=== PATIENT | female | born 1990 | race Native Hawaiian/Other Pacific Islander ===

== ENCOUNTER 2020-02-18 15:08 | Inpatient (IN) | payer OTHER ==
--- NOTE | 2020-02-18 15:55 | Event Note ---
ED Screening Note Date of service: 02/18/20 Time: 15:50 ED Screening Note: 29-year-old female presents to the emergency room complaining of chest pain that radiates to her back shortness of breath cough no fever no chills. Reports that she has Covid positive contact in her home. Reports that she was treated for pneumonia last week but worsening symptoms. This initial assessment/diagnostic orders/clinical plan/treatment(s) is/are subject to change based on patients health status, clinical progression and re- assessment by fellow clinical providers in the ED. Further treatment and workup at subsequent clinical providers discretion. Patient/guardian urged not to elope from the ED as their condition may be serious if not clinically assessed and managed. Initial orders include:
--- NOTE | 2020-02-18 16:28 | XRay Report ---
CHEST 2 VIEWS INDICATION: sob,cough and rales. COMPARISON: None. FINDINGS: Support devices: None. Heart: Within normal limits. Lungs/Pleura: No acute air space or interstitial disease. No significant pleural effusion. IMPRESSION: No acute findings. Signer Name: Alexis Douglas MD Signed: 02/18/2020 4:23 PM Workstation Name: [id number]
[2020-02-18 16:41] LABS: Bilirubin,Urine NEG (Negative); Blood,Urine MOD (Negative); Color,Urine Straw (Yellow); Mucus,Urine FEW /HPF; Protein,Urine <15 mg/dL mg/dL (Negative); RBC,Urine < 1.0 /HPF (0.0-6.0); Urobilinogen,Urine < 2.0 mg/dL (<2.0); WBC,Urine < 1.0 /HPF (0.0-6.0)
[2020-02-18 16:41] LABS: Hematocrit 40.9 % (30.3-42.9); Hemoglobin 13.8 gm/dl (10.1-14.3); Mean Corpuscular HGB Conc 34 % (30-34); Mean Corpuscular Volume 90 fl (79-97); Platelet Count 291 K/mm3 (140-440); Red Blood Count 4.57 M/mm3 (3.65-5.03); Red Cell Distribution Width 13.9 % (13.2-15.2)
[2020-02-18 17:04] LABS: Alanine Aminotransferase 21 units/L (7-56); Albumin 4.4 g/dL (3.9-5); Blood Urea Nitrogen 8 mg/dL (7-17); Hemolysis Index 7
[2020-02-18 17:09] LABS: BUN/Creatinine Ratio 16
[2020-02-18 19:32] LABS: Basophils % (Manual) 0 % (0.0-1.8); Eosinophils % (Manual) 0 % (0.0-4.3); Total Cells Counted 100
[2020-02-18 19:44] LABS: Platelet Estimate Consistent w Auto; RBC Morphology Normal
[2020-02-18] MEDS ORDERED: SODIUM CHLORIDE 0.9% 1000 ML 1,000 ML IV ONE (21:09)
[2020-02-18] MEDS ORDERED: dexAMETHasone 20 MG/5 ML VIAL IV ONE (21:23)
[2020-02-18] MEDS ORDERED: MORPHINE 4 MG/1 ML INJ IV ONE (21:23)
--- NOTE | 2020-02-18 21:28 | Emergency Department Report ---
ED Shortness of Breath HPI - General Chief Complaint: Dyspnea/Respdistress Stated Complaint: FEVER Time Seen by Provider: 02/18/20 21:07 Source: patient Mode of arrival: Ambulatory Limitations: Language Barrier - History of Present Illness Initial Comments: Patient is a 29-year-old female with no significant past medical history who is presenting with 3 to 4 days of cough congestion is shortness of breath. Patient went to a clinic 3 days ago and was diagnosed with a left sided pneumonia and was started on antibiotics and steroids. Patient has several family members who is tested positive for COVID-19. Patient has not gotten any better since started antibiotics and likely has COVID-19 herself. There is been no nausea vomiting diarrhea. Cough is nonproductive. She has shortness of breath with exertion. She denies body aches. - Related Data Allergies Allergy/AdvReac Type Severity Reaction Status Date / Time No Known Allergies Allergy Unverified 02/18/20 15:51 ED Review of Systems ROS: Stated complaint: FEVER Other details as noted in HPI Comment: All other systems reviewed and negative ED Physical Exam - General Limitations: Language Barrier General appearance: alert, in no apparent distress - Head Head exam: Present: atraumatic, normocephalic - Eye Eye exam: Present: normal appearance - ENT ENT exam: Present: mucous membranes moist - Neck Neck exam: Present: normal inspection - Respiratory Respiratory exam: Present: rhonchi. Absent: respiratory distress, wheezes, rales - Cardiovascular Cardiovascular Exam: Present: regular rate, normal rhythm, normal heart sounds. Absent: systolic murmur, diastolic murmur, rubs, gallop - GI/Abdominal GI/Abdominal exam: Present: soft, normal bowel sounds. Absent: distended, tenderness, guarding, rebound - Extremities Exam Extremities exam: Present: normal inspection - Back Exam Back exam: Present: normal inspection - Neurological Exam Neurological exam: Present: alert, oriented X3 - Psychiatric Psychiatric exam: Present: normal affect, normal mood - Skin Skin exam: Present: warm, dry, intact, normal color. Absent: rash ED Course Vital Signs 02/18/20 15:46 Temperature 98.8 F Pulse Rate 71 Respiratory 20 Rate Blood Pressure 95/66 [Right] O2 Sat by Pulse 98 Oximetry ED Medical Decision Making - Lab Data Result diagrams: 02/18/20 16:23 11/13/20 16:23 Lab Results 02/18/20 02/18/20 02/18/20 Range/Units 16:23 16:23 16:23 WBC 32.5 H (4.5-11.0) K/mm3 RBC 4.57 (3.65-5.03) M/mm3 Hgb 13.8 (10.1-14.3) gm/dl Hct 40.9 (30.3-42.9) % MCV 90 (79-97) fl MCH 30 (28-32) pg MCHC 34 (30-34) % RDW 13.9 (13.2-15.2) % Plt Count 291 (140-440) K/mm3 Add Manual Diff Complete Total Counted 100 Seg Neuts % (Manual) 89.0 H (40.0-70.0) % Band Neutrophils % 0 % Lymphocytes % (Manual) 7.0 L (13.4-35.0) % Reactive Lymphs % (Man) 0 % Monocytes % (Manual) 4.0 (0.0-7.3) % Eosinophils % (Manual) 0 (0.0-4.3) % Basophils % (Manual) 0 (0.0-1.8) % Metamyelocytes % 0 % Myelocytes % 0 % Promyelocytes % 0 % Blast Cells % 0 % Nucleated RBC % Not Reportable Seg Neutrophils # Man 28.9 H (1.8-7.7) K/mm3 Band Neutrophils # 0.0 K/mm3 Lymphocytes # (Manual) 2.3 (1.2-5.4) K/mm3 Abs React Lymphs (Man) 0.0 K/mm3 Monocytes # (Manual) 1.3 H (0.0-0.8) K/mm3 Eosinophils # (Manual) 0.0 (0.0-0.4) K/mm3 Basophils # (Manual) 0.0 (0.0-0.1) K/mm3 Metamyelocytes # 0.0 K/mm3 Myelocytes # 0.0 K/mm3 Promyelocytes # 0.0 K/mm3 Blast Cells # 0.0 K/mm3 Hypersegmented Neuts Not Reportable Hyposegmented Neuts Not Reportable Hypogranular Neuts Not Reportable Smudge Cells Not Reportable Toxic Granulation Not Reportable Toxic Vacuolation Not Reportable Dohle Bodies Not Reportable Pelger-Huet Anomaly Not Reportable Angie Rods Not Reportable Platelet Estimate Consistent w auto Clumped Platelets Not Reportable Plt Clumps, EDTA Not Reportable Large Platelets Not Reportable Giant Platelets Not Reportable Platelet Satelliting Not Reportable Plt Morphology Comment Not Reportable RBC Morphology Normal Dimorphic RBCs Not Reportable Polychromasia Not Reportable Hypochromasia Not Reportable Poikilocytosis Not Reportable Anisocytosis Not Reportable Microcytosis Not Reportable Macrocytosis Not Reportable Spherocytes Not Reportable Pappenheimer Bodies Not Reportable Sickle Cells Not Reportable Target Cells Not Reportable Tear Drop Cells Not Reportable Ovalocytes Not Reportable Helmet Cells Not Reportable [place] Bodies Not Reportable [place] Rings Not Reportable [place] Cells Not Reportable Bite Cells Not Reportable Crenated Cell Not Reportable Elliptocytes Not Reportable Acanthocytes (Spur) Not Reportable Rouleaux Not Reportable Hemoglobin C Crystals Not Reportable Schistocytes Not Reportable Malaria parasites Not Reportable [place] Bodies Not Reportable Hem Pathologist Commnt Sent to pathology Sodium 139 (137-145) mmol/L Potassium 3.8 (3.6-5.0) mmol/L Chloride 106.0 (98-107) mmol/L Carbon Dioxide 24 (22-30) mmol/L Anion Gap 13 mmol/L BUN 8 (7-17) mg/dL Creatinine 0.5 L (0.6-1.2) mg/dL Estimated GFR > 60 ml/min BUN/Creatinine Ratio 16 % Glucose 111 H (65-100) mg/dL Calcium 9.0 (8.4-10.2) mg/dL Total Bilirubin 0.20 (0.1-1.2) mg/dL AST 15 (5-40) units/L ALT 21 (7-56) units/L Alkaline Phosphatase 96 (35-129) units/L Troponin T < 0.010 (0.00-0.029) ng/mL Total Protein 7.7 (6.3-8.2) g/dL Albumin 4.4 (3.9-5) g/dL Albumin/Globulin Ratio 1.3 % Urine Color (Yellow) Urine Turbidity (Clear) Urine pH (5.0-7.0) Ur Specific [place] (1.003-1.030) Urine Protein (Negative) mg/dL Urine Glucose (UA) (Negative) mg/dL Urine Ketones (Negative) mg/dL Urine Blood (Negative) Urine Nitrite (Negative) Urine Bilirubin (Negative) Urine Urobilinogen (<2.0) mg/dL Ur Leukocyte Esterase (Negative) Urine WBC (Auto) (0.0-6.0) /HPF Urine RBC (Auto) (0.0-6.0) /HPF U Epithel Cells (Auto) (0-13.0) /HPF Urine Mucus /HPF 02/18/20 Range/Units Unknown WBC (4.5-11.0) K/mm3 RBC (3.65-5.03) M/mm3 Hgb (10.1-14.3) gm/dl Hct (30.3-42.9) % MCV (79-97) fl MCH (28-32) pg MCHC (30-34) % RDW (13.2-15.2) % Plt Count (140-440) K/mm3 Add Manual Diff Total Counted Seg Neuts % (Manual) (40.0-70.0) % Band Neutrophils % % Lymphocytes % (Manual) (13.4-35.0) % Reactive Lymphs % (Man) % Monocytes % (Manual) (0.0-7.3) % Eosinophils % (Manual) (0.0-4.3) % Basophils % (Manual) (0.0-1.8) % Metamyelocytes % % Myelocytes % % Promyelocytes % % Blast Cells % % Nucleated RBC % Seg Neutrophils # Man (1.8-7.7) K/mm3 Band Neutrophils # K/mm3 Lymphocytes # (Manual) (1.2-5.4) K/mm3 Abs React Lymphs (Man) K/mm3 Monocytes # (Manual) (0.0-0.8) K/mm3 Eosinophils # (Manual) (0.0-0.4) K/mm3 Basophils # (Manual) (0.0-0.1) K/mm3 Metamyelocytes # K/mm3 Myelocytes # K/mm3 Promyelocytes # K/mm3 Blast Cells # K/mm3 Hypersegmented Neuts Hyposegmented Neuts Hypogranular Neuts Smudge Cells Toxic Granulation Toxic Vacuolation Dohle Bodies Pelger-Huet Anomaly Angie Rods Platelet Estimate Clumped Platelets Plt Clumps, EDTA Large Platelets Giant Platelets Platelet Satelliting Plt Morphology Comment RBC Morphology Dimorphic RBCs Polychromasia Hypochromasia Poikilocytosis Anisocytosis Microcytosis Macrocytosis Spherocytes Pappenheimer Bodies Sickle Cells Target Cells Tear Drop Cells Ovalocytes Helmet Cells [place] Bodies [place] Rings [place] Cells Bite Cells Crenated Cell Elliptocytes Acanthocytes (Spur) Rouleaux Hemoglobin C Crystals Schistocytes Malaria parasites [place] Bodies Hem Pathologist Commnt Sodium (137-145) mmol/L Potassium (3.6-5.0) mmol/L Chloride (98-107) mmol/L Carbon Dioxide (22-30) mmol/L Anion Gap mmol/L BUN (7-17) mg/dL Creatinine (0.6-1.2) mg/dL Estimated GFR ml/min BUN/Creatinine Ratio % Glucose (65-100) mg/dL Calcium (8.4-10.2) mg/dL Total Bilirubin (0.1-1.2) mg/dL AST (5-40) units/L ALT (7-56) units/L Alkaline Phosphatase (35-129) units/L Troponin T (0.00-0.029) ng/mL Total Protein (6.3-8.2) g/dL Albumin (3.9-5) g/dL Albumin/Globulin Ratio % Urine Color Straw (Yellow) Urine Turbidity Clear (Clear) Urine pH 6.0 (5.0-7.0) Ur Specific [place] 1.006 (1.003-1.030) Urine Protein <15 mg/dl (Negative) mg/dL Urine Glucose (UA) Neg (Negative) mg/dL Urine Ketones Neg (Negative) mg/dL Urine Blood Mod (Negative) Urine Nitrite Neg (Negative) Urine Bilirubin Neg (Negative) Urine Urobilinogen < 2.0 (<2.0) mg/dL Ur Leukocyte Esterase Neg (Negative) Urine WBC (Auto) < 1.0 (0.0-6.0) /HPF Urine RBC (Auto) < 1.0 (0.0-6.0) /HPF U Epithel Cells (Auto) 2.0 (0-13.0) /HPF Urine Mucus Few /HPF - Radiology Data [facility] [address] [place] [address] XRay Report Signed Patient: CAM FRYE MR#: [id number] : 1990 Acct:[id number] Age/Sex: 29 / F ADM Date: 02/18/20 Loc: ED Attending Dr: Ordering Physician: PEDRO LUIS CASTILLO Date of Service: 02/18/20 Procedure(s): XR chest routine 2V Accession Number(s): [id number] cc: PEDRO LUIS CASTILLO Fluoro Time In Minutes: CHEST 2 VIEWS INDICATION: sob,cough and rales. COMPARISON: None. FINDINGS: Support devices: None. Heart: Within normal limits. Lungs/Pleura: No acute air space or interstitial disease. No significant pleural effusion. IMPRESSION: No acute findings. Signer Name: Alexis Douglas MD Signed: 02/18/2020 4:23 PM Workstation Name: [id number] - Medical Decision Making Patient is a 29-year-old female who is presenting with cough congestion shortness of breath. Her O2 sat is within normal limits at rest however when she ambulates it dropped to 85%. Patient was placed in the room started on o xygen therapy. White count is 32,000 and patient does meet sepsis criteria at this time. Blood cultures to be drawn as well as lactic acid. Patient be started on Rocephin and azithromycin. Patient given a 10 mg of Decadron. COVID-19 testing is been initiated as well patient will be admitted for observation. Critical Care Time: Yes (30) Critical care attestation.: If time is entered above; I have spent that time in minutes in the direct care of this critically ill patient, excluding procedure time. ED Disposition Clinical Impression: Acute respiratory distress, Hypoxia, Acute bronchitis, Suspected COVID-19 virus infection Disposition: OP ADMIT IP TO THIS HOSP Is pt being admited?: Yes Does the pt Need Aspirin: No Condition: Serious Instructions: Acute Bronchitis (ED) Time of Disposition: 21:30
[2020-02-18] MEDS ORDERED: MORPHINE 2 MG/1 ML INJ IV PRN (21:58)
[2020-02-18] MEDS ORDERED: MAGNESIUM HYDROXIDE (MOM) ORAL LIQD UDC PO PRN (21:58)
[2020-02-18] MEDS ORDERED: ONDANSETRON 4 MG/2 ML INJ IV PRN (21:58)
[2020-02-18] MEDS ORDERED: SODIUM CHLORIDE 0.9% 1000 ML 1,000 ML IV SCH (22:00)
--- NOTE | 2020-02-18 22:07 | History and Physical Report ---
History of Present Illness Date of examination: 02/18/20 Date of admission: 02/18/20 21:30 Chief complaint: Cough Shortness of breath History of present illness: 29-year-old female with no significant past medical history presenting to the emergency room today complaining of cough, congestion and shortness of breath. She was seen at the clinic about 3 days ago and diagnosed with left- sided pneumonia and started on antibiotics and steroids. She also indicates that several family members have tested positive for COVID-19. As symptoms have been getting worse and she has not had any improvement since she started the antibiotics. Patient denies any chest pain, no nausea or vomiting, no diarrhea, no headache or dizziness, no hematuria or dysuria. Cough has been nonproductive. Evaluation in the emergency room today reveals a significant leukocytosis on the CBC, patient was hypoxic on minimal exertion. Chest x-ray is unremarkable. Patient has been started on empiric IV antibiotics and IV steroid. She is also placed on isolation precautions to rule out COVID-19. Past History Past Medical History: No medical history Past Surgical History: No surgical history Social history: no significant social history Family history: no significant family history Medications and Allergies Allergies Allergy/AdvReac Type Severity Reaction Status Date / Time No Known Allergies Allergy Unverified 02/18/20 15:51 Active Meds: Active Medications Acetaminophen (Tylenol) 650 mg PO Q4H PRN PRN Reason: Pain MILD(1-3)/Fever >100.5/MEJIA Enoxaparin Sodium (Enoxaparin) 40 mg SUB-Q QDAY@2200 ZENOBIA; Protocol Ceftriaxone Sodium (Rocephin/Ns 2 Gm/100 Ml) 2 gm in 100 mls @ 200 mls/hr IV Q24HR ZENOBIA; Protocol Azithromycin 500 mg/ Sodium (Chloride) 250 mls @ 250 mls/hr IV Q24HR ZENOBIA; Protocol Sodium Chloride (Nacl 0.9% 1000 Ml) 1,000 mls @ 999 mls/hr IV BOLUS ONE Stop: 02/18/20 22:09 Sodium Chloride (Nacl 0.9% 1000 Ml) 1,000 mls @ 75 mls/hr IV DIRECT ZENOBIA Magnesium Hydroxide (Milk Of Magnesia) 30 ml PO Q4H PRN PRN Reason: Constipation Morphine Sulfate (Morphine) 2 mg IV Q4H PRN PRN Reason: Pain, Moderate (4-6) Ondansetron HCl (Zofran) 4 mg IV Q8H PRN PRN Reason: Nausea And Vomiting Sodium Chloride (Sodium Chloride Flush Syringe 10 Ml) 10 ml IV BID ZENOBIA Sodium Chloride (Sodium Chloride Flush Syringe 10 Ml) 10 ml IV PRN PRN PRN Reason: LINE FLUSH Review of Systems Constitutional: fever, no chills Ears, nose, mouth and throat: nasal congestion, no sore throat Cardiovascular: no chest pain, no palpitations Respiratory: cough, shortness of breath Gastrointestinal: no abdominal pain, no nausea, no vomiting, no diarrhea Genitourinary Female: no pelvic pain, no flank pain, no hematuria Musculoskeletal: no neck pain, no low back pain Integumentary: no rash, no pruritis Neurological: no headaches, no confusion Psychiatric: no anxiety, no depression Exam - Constitutional Vitals: Temp Pulse Resp BP Pulse Ox 98.8 F 71 20 102/66 98 02/18/20 21:21 02/18/20 15:46 02/18/20 15:46 02/18/20 21:21 02/18/20 15:46 General appearance: Present: no acute distress, well-nourished - EENT Eyes: Present: PERRL, EOM intact. Absent: scleral icterus ENT: hearing intact, clear oral mucosa, dentition normal - Neck Neck: Present: supple, normal ROM - Respiratory Respiratory effort: normal Respiratory: bilateral: CTA - Cardiovascular Rhythm: regular Heart Sounds: Present: S1 & S2. Absent: gallop, systolic murmur, diastolic murmur, rub - Extremities Extremities: no ischemia, pulses intact, pulses symmetrical, No edema, Full ROM Peripheral Pulses: within normal limits - Abdominal General gastrointestinal: Present: soft, non-tender, non-distended, normal bowel sounds. Absent: mass - Integumentary Integumentary: Present: clear, warm, dry - Musculoskeletal Musculoskeletal: strength equal bilaterally - Psychiatric Psychiatric: appropriate mood/affect, intact judgment & insight, memory intact, cooperative - Neurologic Neurologic: CNII-XII intact, no focal deficits, moves all extremities - Additional findings Additional findings: Skin: ?Psoriatic rash on hands. HEART Score - HEART Score Troponin: Troponin T < 0.010 ng/mL (0.00-0.029) 02/18/20 16:23 Results - Labs CBC & Chem 7: 02/18/20 16:23 02/18/20 21:24 Labs: Abnormal lab results 02/18/20 02/18/20 02/18/20 Range/Units 16:23 16:23 21:24 WBC 32.5 H (4.5-11.0) K/mm3 Seg Neuts % (Manual) 89.0 H (40.0-70.0) % Lymphocytes % (Manual) 7.0 L (13.4-35.0) % Seg Neutrophils # Man 28.9 H (1.8-7.7) K/mm3 Monocytes # (Manual) 1.3 H (0.0-0.8) K/mm3 Creatinine 0.5 L (0.6-1.2) mg/dL Glucose 111 H 123 H (65-100) mg/dL Assessment and Plan - Patient Problems (1) Acute respiratory distress Current Visit: Yes Status: Acute Plan to address problem: Possibly secondary to underlying pneumonia from COVID-19. We will keep O2 saturation greater or equal to 94%. (2) Hypoxia Current Visit: Yes Status: Acute Plan to address problem: Secondary to pneumonia from COVID-19. Patient will be placed on oxygen to keep O2 saturation greater or equal to 94%. Meanwhile patient has been started on IV steroid. (3) Suspected COVID-19 virus infection Current Visit: Yes Status: Acute Plan to address problem: Will await COVID-19 testing. Patient placed on isolation precautions. We appreciate infectious disease evaluation. (4) DVT prophylaxis Current Visit: Yes Status: Acute Plan to address problem: Patient placed on subcutaneous Lovenox. (5) Full code status Current Visit: Yes Status: Acute
[2020-02-18] MEDS ORDERED: cefTRIAXone/NS 2 GM/100 ML 2 GM/100 ML BAG IV ONE (22:11)
[2020-02-18] MEDS ORDERED: MORPHINE 4 MG/1 ML INJ ONE (22:12)
[2020-02-18] MEDS: cefTRIAXone/NS 2 GM/100 ML 2 GM/100 ML BAG IV SCH (22:30)
[2020-02-18] MEDS ORDERED: ENOXAPARIN 40 MG/0.4 ML INJ SUB-Q ONE (23:34)
[2020-02-18] MEDS: AZITHROMYCIN 500 MG in SODIUM CHLORIDE 0.9% 250ML 250 ML IV SCH (23:49)
[2020-02-18] MEDS: ENOXAPARIN 40 MG/0.4 ML INJ SUB-Q SCH (23:50)
[2020-02-19 03:03] LABS: Hematocrit 38.3 % (30.3-42.9); Hemoglobin 12.5 gm/dl (10.1-14.3); Mean Corpuscular HGB Conc 33 % (30-34); Mean Corpuscular Volume 90 fl (79-97); Platelet Count 258 K/mm3 (140-440); Red Blood Count 4.26 M/mm3 (3.65-5.03); Red Cell Distribution Width 13.5 % (13.2-15.2)
[2020-02-19 03:11] LABS: Blood Urea Nitrogen 15 mg/dL (7-17); Calcium 8.4 mg/dL (8.4-10.2); Hemolysis Index 8; INR 0.96 (0.87-1.13)
[2020-02-19 03:16] LABS: BUN/Creatinine Ratio 30
[2020-02-19 05:34] LABS: Basophils % (Manual) 0 % (0.0-1.8); Eosinophils % (Manual) 0 % (0.0-4.3); Platelet Estimate Consistent w Auto; Total Cells Counted 100
--- NOTE | 2020-02-19 10:54 | Progress Note ---
Assessment and Plan Assessment and plan: Acute respiratory distress Possibly secondary to underlying pneumonia from COVID-19. We will keep O2 saturation greater or equal to 94%. Acute Hypoxic respiratory failure Secondary to pneumonia from COVID-19. Patient will be placed on oxygen to keep O2 saturation greater or equal to 94%. Meanwhile patient has been started on IV steroid. Suspected COVID-19 virus infection Will await COVID-19 testing. Patient placed on isolation precautions. We appreciate infectious disease evaluation. DVT prophylaxis Patient placed on subcutaneous Lovenox. Full code status History Interval history: no new issues Hospitalist Physical - Constitutional Vitals: Temp Pulse Resp BP Pulse Ox 98.3 F 75 15 110/79 97 02/19/20 00:37 02/19/20 00:37 02/19/20 00:37 02/19/20 00:37 02/19/20 00:37 General appearance: Present: no acute distress, well-nourished - EENT Eyes: Present: PERRL, EOM intact ENT: hearing intact, clear oral mucosa, dentition normal - Neck Neck: Present: supple, normal ROM - Respiratory Respiratory effort: normal Respiratory: bilateral: CTA - Cardiovascular Rhythm: regular Heart Sounds: Present: S1 & S2. Absent: gallop, rub - Extremities Extremities: no ischemia, No edema, Full ROM - Abdominal General gastrointestinal: soft, non-tender, non-distended, normal bowel sounds - Integumentary Integumentary: Present: clear, warm, dry - Neurologic Neurologic: CNII-XII intact, moves all extremities HEART Score - HEART Score Troponin: Troponin T < 0.010 ng/mL (0.00-0.029) 02/18/20 16:23 Results - Labs CBC & Chem 7: 02/19/20 02:33 02/19/20 02:33 Labs: Laboratory Last Values WBC 21.3 K/mm3 (4.5-11.0) H 02/19/20 02:33 RBC 4.26 M/mm3 (3.65-5.03) 02/19/20 02:33 Hgb 12.5 gm/dl (10.1-14.3) 02/19/20 02:33 Hct 38.3 % (30.3-42.9) 02/19/20 02:33 MCV 90 fl (79-97) 02/19/20 02:33 MCH 30 pg (28-32) 02/19/20 02:33 MCHC 33 % (30-34) 02/19/20 02:33 RDW 13.5 % (13.2-15.2) 02/19/20 02:33 Plt Count 258 K/mm3 (140-440) 02/19/20 02:33 Add Manual Diff Complete 02/19/20 02:33 Total Counted 100 02/19/20 02:33 Seg Neuts % (Manual) 89.0 % (40.0-70.0) H 02/19/20 02:33 Band Neutrophils % 0 % 02/19/20 02:33 Lymphocytes % (Manual) 7.0 % (13.4-35.0) L 02/19/20 02:33 Reactive Lymphs % (Man) 0 % 02/19/20 02:33 Monocytes % (Manual) 3.0 % (0.0-7.3) 02/19/20 02:33 Eosinophils % (Manual) 0 % (0.0-4.3) 02/19/20 02:33 Basophils % (Manual) 0 % (0.0-1.8) 02/19/20 02:33 Metamyelocytes % 1.0 % 02/19/20 02:33 Myelocytes % 0 % 02/19/20 02:33 Promyelocytes % 0 % 02/19/20 02:33 Blast Cells % 0 % 02/19/20 02:33 Nucleated RBC % Not Reportable 02/19/20 02:33 Seg Neutrophils # Man 19.0 K/mm3 (1.8-7.7) H 02/19/20 02:33 Band Neutrophils # 0.0 K/mm3 02/19/20 02:33 Lymphocytes # (Manual) 1.5 K/mm3 (1.2-5.4) 02/19/20 02:33 Abs React Lymphs (Man) 0.0 K/mm3 02/19/20 02:33 Monocytes # (Manual) 0.6 K/mm3 (0.0-0.8) 02/19/20 02:33 Eosinophils # (Manual) 0.0 K/mm3 (0.0-0.4) 02/19/20 02:33 Basophils # (Manual) 0.0 K/mm3 (0.0-0.1) 02/19/20 02:33 Metamyelocytes # 0.2 K/mm3 02/19/20 02:33 Myelocytes # 0.0 K/mm3 02/19/20 02:33 Promyelocytes # 0.0 K/mm3 02/19/20 02:33 Blast Cells # 0.0 K/mm3 02/19/20 02:33 WBC Morphology Not Reportable 02/19/20 02:33 Hypersegmented Neuts Not Reportable 02/19/20 02:33 Hyposegmented Neuts Not Reportable 02/19/20 02:33 Hypogranular Neuts Not Reportable 02/19/20 02:33 Smudge Cells Not Reportable 02/19/20 02:33 Toxic Granulation Not Reportable 02/19/20 02:33 Toxic Vacuolation Not Reportable 02/19/20 02:33 Dohle Bodies Not Reportable 02/19/20 02:33 Pelger-Huet Anomaly Not Reportable 02/19/20 02:33 Angie Rods Not Reportable 02/19/20 02:33 Platelet Estimate Consistent w auto 02/19/20 02:33 Clumped Platelets Not Reportable 02/19/20 02:33 Plt Clumps, EDTA Not Reportable 02/19/20 02:33 Large Platelets Not Reportable 02/19/20 02:33 Giant Platelets Not Reportable 02/19/20 02:33 Platelet Satelliting Not Reportable 02/19/20 02:33 Plt Morphology Comment Not Reportable 02/19/20 02:33 RBC Morphology Not Reportable 02/19/20 02:33 Dimorphic RBCs Not Reportable 02/19/20 02:33 Polychromasia Not Reportable 02/19/20 02:33 Hypochromasia Not Reportable 02/19/20 02:33 Poikilocytosis Not Reportable 02/19/20 02:33 Anisocytosis Not Reportable 02/19/20 02:33 Microcytosis Not Reportable 02/19/20 02:33 Macrocytosis Not Reportable 02/19/20 02:33 Spherocytes Not Reportable 02/19/20 02:33 Pappenheimer Bodies Not Reportable 02/19/20 02:33 Sickle Cells Not Reportable 02/19/20 02:33 Target Cells Not Reportable 02/19/20 02:33 Tear Drop Cells Not Reportable 02/19/20 02:33 Ovalocytes Not Reportable 02/19/20 02:33 Helmet Cells Not Reportable 02/19/20 02:33 [place] Bodies Not Reportable 02/19/20 02:33 [place] Rings Not Reportable 02/19/20 02:33 [place] Cells Not Reportable 02/19/20 02:33 Bite Cells Not Reportable 02/19/20 02:33 Crenated Cell Not Reportable 02/19/20 02:33 Elliptocytes Not Reportable 02/19/20 02:33 Acanthocytes (Spur) Not Reportable 02/19/20 02:33 Rouleaux Not Reportable 02/19/20 02:33 Hemoglobin C Crystals Not Reportable 02/19/20 02:33 Schistocytes Not Reportable 02/19/20 02:33 Malaria parasites Not Reportable 02/19/20 02:33 [place] Bodies Not Reportable 02/19/20 02:33 Hem Pathologist Commnt No 02/19/20 02:33 PT 12.9 Sec. (12.2-14.9) 02/19/20 02:33 INR 0.96 (0.87-1.13) 02/19/20 02:33 D-Dimer 257.67 ng/mlDDU (0-234) H 02/18/20 21:24 Sodium 141 mmol/L (137-145) 02/19/20 02:33 Potassium 4.3 mmol/L (3.6-5.0) 02/19/20 02:33 Chloride 110.6 mmol/L (98-107) H 02/19/20 02:33 Carbon Dioxide 18 mmol/L (22-30) L 02/19/20 02:33 Anion Gap 17 mmol/L 02/19/20 02:33 BUN 15 mg/dL (7-17) 02/19/20 02:33 Creatinine 0.5 mg/dL (0.6-1.2) L 02/19/20 02:33 Estimated GFR > 60 ml/min 02/19/20 02:33 BUN/Creatinine Ratio 30 % 02/19/20 02:33 Glucose 130 mg/dL (65-100) H 02/19/20 02:33 Lactic Acid 1.80 mmol/L (0.7-2.0) 02/19/20 02:03 Calcium 8.4 mg/dL (8.4-10.2) 02/19/20 02:33 Ferritin 93.3 ng/mL (10.0-200.0) 02/18/20 21:24 Total Bilirubin 0.20 mg/dL (0.1-1.2) 02/18/20 16:23 AST 15 units/L (5-40) 02/18/20 16:23 ALT 21 units/L (7-56) 02/18/20 16:23 Alkaline Phosphatase 96 units/L (35-129) 02/18/20 16:23 Lactate Dehydrogenase 164 units/L (91-180) 02/18/20 21:24 Troponin T < 0.010 ng/mL (0.00-0.029) 02/18/20 16:23 C-Reactive Protein 0.00 mg/dL (0.00-1.30) 02/18/20 21:24 Total Protein 7.7 g/dL (6.3-8.2) 02/18/20 16:23 Albumin 4.4 g/dL (3.9-5) 02/18/20 16:23 Albumin/Globulin Ratio 1.3 % 02/18/20 16:23 Procalcitonin < 0.05 ng/mL (<0.15) 02/18/20 21:24 Urine Color Straw (Yellow) 02/18/20 Unknown Urine Turbidity Clear (Clear) 02/18/20 Unknown Urine pH 6.0 (5.0-7.0) 02/18/20 Unknown Ur Specific [place] 1.006 (1.003-1.030) 02/18/20 Unknown Urine Protein <15 mg/dl mg/dL (Negative) 02/18/20 Unknown Urine Glucose (UA) Neg mg/dL (Negative) 02/18/20 Unknown Urine Ketones Neg mg/dL (Negative) 02/18/20 Unknown Urine Blood Mod (Negative) 02/18/20 Unknown Urine Nitrite Neg (Negative) 02/18/20 Unknown Urine Bilirubin Neg (Negative) 02/18/20 Unknown Urine Urobilinogen < 2.0 mg/dL (<2.0) 02/18/20 Unknown Ur Leukocyte Esterase Neg (Negative) 02/18/20 Unknown Urine WBC (Auto) < 1.0 /HPF (0.0-6.0) 02/18/20 Unknown Urine RBC (Auto) < 1.0 /HPF (0.0-6.0) 02/18/20 Unknown U Epithel Cells (Auto) 2.0 /HPF (0-13.0) 02/18/20 Unknown Urine Mucus Few /HPF 02/18/20 Unknown Microbiology: Microbiology 02/18/20 21:28 Peripheral/Venous Blood Culture - Preliminary Culture in Progress 02/18/20 21:24 Peripheral/Venous Blood Culture - Preliminary Culture in Progress Lane/IV: IV Catheter Type [Right Distal INT / Saline Lock Port Hand] Active Medications - Current Medications Current Medications: Generic Name Dose Route Start Last Admin Trade Name Freq PRN Reason Stop Dose Admin Acetaminophen 650 mg 02/18/20 21:58 Tylenol PO Q4H PRN Pain MILD(1-3)/Fever >100.5/MEJIA Dexamethasone 6 mg 02/19/20 10:00 Decadron IV Q24HR ZENOBIA Enoxaparin Sodium 40 mg 02/19/20 22:00 02/18/20 23:50 Enoxaparin SUB-Q 40 mg QDAY@2200 [facility] Administration Protocol Ceftriaxone Sodium 2 gm in 100 mls @ 200 mls/hr 02/18/20 21:07 02/18/20 22:30 Rocephin/Ns 2 Gm/100 Ml IV 200 mls/hr Q24HR ZENOBIA Administration Protocol Azithromycin 500 mg/ Sodium 250 mls @ 250 mls/hr 02/18/20 21:07 02/18/20 23:49 Chloride IV 250 mls/hr Q24HR [facility] Administration Protocol Sodium Chloride 1,000 mls @ 75 mls/hr 02/18/20 22:00 Nacl 0.9% 1000 Ml IV DIRECT ZENOBIA Magnesium Hydroxide 30 ml 02/18/20 21:58 Milk Of Magnesia PO Q4H PRN Constipation Morphine Sulfate 2 mg 02/18/20 21:58 Morphine IV Q4H PRN Pain, Moderate (4-6) Ondansetron HCl 4 mg 02/18/20 21:58 Zofran IV Q8H PRN Nausea And Vomiting Sodium Chloride 10 ml 02/18/20 22:00 02/18/20 23:49 Sodium Chloride Flush Syringe 10 Ml IV 10 ml BID ZENOBIA Administration Sodium Chloride 10 ml 02/18/20 21:58 Sodium Chloride Flush Syringe 10 Ml IV PRN PRN LINE FLUSH
[2020-02-19] MEDS ORDERED: dexAMETHasone 4 MG/ML VIAL ONE (11:09)
[2020-02-19] MEDS ORDERED: cefTRIAXone/NS 2 GM/100 ML 2 GM/100 ML BAG IV ONE (11:23)
[2020-02-19] MEDS: dexAMETHasone 4 MG/ML VIAL IV SCH (11:26)
[2020-02-19] MEDS: cefTRIAXone/NS 2 GM/100 ML 2 GM/100 ML BAG IV SCH (11:27)
[2020-02-19 12:03] LABS: C-Reactive Protein < 0.03 mg/dL (0.00-1.30)
[2020-02-19] MEDS: AZITHROMYCIN 500 MG in SODIUM CHLORIDE 0.9% 250ML 250 ML IV SCH (12:19)
--- NOTE | 2020-02-19 15:10 | Consultation ---
History of Present Illness - Reason for Consult Consult date: 02/19/20 Rule out Covid Requesting physician: ANGY HANEY - History of Present Illness 29 years old female with no past medical history admitted on 02/18/2020 due to 3 days history of cough, chest congestion and shortness of breath. Patient was diagnosed with a left-sided pneumonia as an outpatient and started on antibiotics and steroids. Several family members tested positive for COVID-19. Denies any nausea, vomiting, diarrhea. Chest x-ray was unremarkable. On arrival, temperature 98.8, HR 71, RR 20, O2 98, BP 95/60. Initial WBC 32.5. Hemoglobin 13.8. Platelets 291. D-dimer 257. Ferritin 93. Creatinine 0.5. Procalcitonin normal. Urinalysis negative. Review of Systems: reviewed ED and H&P notes. Limited due to PPE conservation strategy Past History Past Medical History: No medical history Past Surgical History: No surgical history Social history: no significant social history Family history: no significant family history Medications and Allergies Allergies Allergy/AdvReac Type Severity Reaction Status Date / Time No Known Allergies Allergy Unverified 02/18/20 15:51 Active Meds: Active Medications Acetaminophen (Tylenol) 650 mg PO Q4H PRN PRN Reason: Pain MILD(1-3)/Fever >100.5/MEJIA Dexamethasone (Decadron) 6 mg IV Q24HR ZENOBIA Last Admin: 02/19/20 11:26 Dose: 6 mg Documented by: Enoxaparin Sodium (Enoxaparin) 40 mg SUB-Q QDAY@2200 ZENOBIA; Protocol Last Admin: 02/18/20 23:50 Dose: 40 mg Documented by: Ceftriaxone Sodium (Rocephin/Ns 2 Gm/100 Ml) 2 gm in 100 mls @ 200 mls/hr IV Q24HR ZENOBIA; Protocol Last Admin: 02/19/20 11:27 Dose: 200 mls/hr Documented by: Azithromycin 500 mg/ Sodium (Chloride) 250 mls @ 250 mls/hr IV Q24HR ZENOBIA; Protocol Last Admin: 02/19/20 12:19 Dose: 250 mls/hr Documented by: Sodium Chloride (Nacl 0.9% 1000 Ml) 1,000 mls @ 75 mls/hr IV DIRECT ZENOBIA Magnesium Hydroxide (Milk Of Magnesia) 30 ml PO Q4H PRN PRN Reason: Constipation Morphine Sulfate (Morphine) 2 mg IV Q4H PRN PRN Reason: Pain, Moderate (4-6) Ondansetron HCl (Zofran) 4 mg IV Q8H PRN PRN Reason: Nausea And Vomiting Sodium Chloride (Sodium Chloride Flush Syringe 10 Ml) 10 ml IV BID ZENOBIA Last Admin: 02/18/20 23:49 Dose: 10 ml Documented by: Sodium Chloride (Sodium Chloride Flush Syringe 10 Ml) 10 ml IV PRN PRN PRN Reason: LINE FLUSH Physical Examination - Physical Exam Narrative exam: Physical Exam: reviewed ED and hospitalist notes, limited due to conservation of PPE and decrease risk of transmission. General appearance: limited due to conservation of PPE Eyes: limited due to conservation of PPE HENT: Atraumatic; limited due to conservation of PPE Lungs: limited due to conservation of PPE CV: limited due to conservation of PPE Abdomen: limited due to conservation of PPE Extremities: limited due to conservation of PPE Skin: limited due to conservation of PPE Psych: limited due to conservation of PPE Neuro: limited due to conservation of PPE - Constitutional Vitals: Vital Signs Temp Pulse Resp BP Pulse Ox 98.2 F 59 L 14 104/56 98 02/19/20 11:00 02/19/20 11:00 02/19/20 11:00 02/19/20 11:00 02/19/20 11:00 Temperature -Last 24 Hours Temperature 98.2 F Temperature 98.3 F Temperature 98.8 F Temperature 98.8 F Temperature 98.8 F Results - Labs CBC & Chem 7: 02/19/20 02:33 02/19/20 02:33 Labs: Abnormal lab results 02/18/20 02/18/20 02/18/20 Range/Units 16:23 16:23 21:24 WBC 32.5 H (4.5-11.0) K/mm3 Seg Neuts % (Manual) 89.0 H (40.0-70.0) % Lymphocytes % (Manual) 7.0 L (13.4-35.0) % Seg Neutrophils # Man 28.9 H (1.8-7.7) K/mm3 Monocytes # (Manual) 1.3 H (0.0-0.8) K/mm3 D-Dimer 257.67 H (0-234) ng/mlDDU Chloride (98-107) mmol/L Carbon Dioxide (22-30) mmol/L Creatinine 0.5 L (0.6-1.2) mg/dL Glucose 111 H (65-100) mg/dL 02/18/20 02/19/20 02/19/20 Range/Units 21:24 02:33 02:33 WBC 21.3 H (4.5-11.0) K/mm3 Seg Neuts % (Manual) 89.0 H (40.0-70.0) % Lymphocytes % (Manual) 7.0 L (13.4-35.0) % Seg Neutrophils # Man 19.0 H (1.8-7.7) K/mm3 Monocytes # (Manual) (0.0-0.8) K/mm3 D-Dimer (0-234) ng/mlDDU Chloride 110.6 H (98-107) mmol/L Carbon Dioxide 18 L (22-30) mmol/L Creatinine 0.5 L (0.6-1.2) mg/dL Glucose 123 H 130 H (65-100) mg/dL 02/19/20 Range/Units 11:14 WBC (4.5-11.0) K/mm3 Seg Neuts % (Manual) (40.0-70.0) % Lymphocytes % (Manual) (13.4-35.0) % Seg Neutrophils # Man (1.8-7.7) K/mm3 Monocytes # (Manual) (0.0-0.8) K/mm3 D-Dimer 245.33 H (0-234) ng/mlDDU Chloride (98-107) mmol/L Carbon Dioxide (22-30) mmol/L Creatinine (0.6-1.2) mg/dL Glucose (65-100) mg/dL Assessment and Plan Cultures: Blood culture pending SARS CoV2 PCR pending Assessment: 29 years old female with no past medical history admitted on 020 due to 3 days history of cough, chest congestion and shortness of breath, multiple family members positive for COVID-19.: #Leukocytosis: Unclear etiology, usually not associated with COVID-19 infection. Patient was receiving a steroid as an outpatient possibly WBC demargination due to her steroids. Procalcitonin is normal. Urinalysis negative. #Suspect COVID-19 infection: Chest x-ray unremarkable. Markers overall normal except for mildly elevated D-dimer. #Hypoxia upon ambulation: Likely due to COVID-19 infection. Currently on room air. Recommendations: -Follow-up SARS-CoV-2 PCR -Repeat chest x-ray in 24 hours -Start Dexamethasone 6 mg IV/PO daily for 10 days -No indication for remdesivir at this time remdesivir -given lack of sustained hypoxia -Monitor inflammatory markers - ferritin, Ddimer, CRP, LDH -Stop ceftriaxone and azithromycin, procalcitonin <0.25 ng/mL -Continue anticoagulation per System Protocol -Prone positioning as possible All laboratory, cultures and imaging were reviewed. Will follow Lisa Ribeiro MD Infectious Diseases Professor Of Musicology [facility] M [phone] O [phone]
[2020-02-20] MEDS: ENOXAPARIN 40 MG/0.4 ML INJ SUB-Q SCH (05:16)
[2020-02-20 06:07] LABS: Hematocrit 39.2 % (30.3-42.9); Hemoglobin 13.2 gm/dl (10.1-14.3); Mean Corpuscular HGB Conc 34 % (30-34); Mean Corpuscular Volume 90 fl (79-97); Platelet Count 271 K/mm3 (140-440); Red Blood Count 4.38 M/mm3 (3.65-5.03); Red Cell Distribution Width 13.9 % (13.2-15.2)
[2020-02-20 06:12] LABS: Lymphocytes # (Auto) 2.5 K/mm3 (1.2-5.4); Monocytes # (Auto) 1.4 K/mm3 (0.0-0.8); Monocytes % (Auto) 6.3 % (0.0-7.3)
[2020-02-20 06:22] LABS: BUN/Creatinine Ratio 22; Blood Urea Nitrogen 11 mg/dL (7-17); Calcium 8.8 mg/dL (8.4-10.2); Hemolysis Index 18
--- NOTE | 2020-02-20 09:01 | Progress Note ---
Assessment and Plan Assessment and plan: Acute respiratory distress Possibly secondary to underlying pneumonia from COVID-19. We will keep O2 saturation greater or equal to 94%. Acute Hypoxic respiratory failure Secondary to pneumonia from COVID-19. Patient will be placed on oxygen to keep O2 saturation greater or equal to 94%. Meanwhile patient has been started on IV steroid. Suspected COVID-19 virus infection Will await COVID-19 testing. Patient placed on isolation precautions. We appreciate infectious disease evaluation. DVT prophylaxis Patient placed on subcutaneous Lovenox. Full code status 02/20/2020. Patient with only mildly elevated D-dimer but ferritin, procalcitonin, CRP and LDH within normal limits. Patient is afebrile with leukocytosis likely secondary to steroids. Continue dexamethasone. If patient has adequate exercise pulse oximetry, we will consider discharge home. History Interval history: no new issues Hospitalist Physical - Constitutional Vitals: Temp Pulse Resp BP Pulse Ox 98.8 F 54 L 18 114/60 99 02/19/20 23:28 02/19/20 23:28 02/19/20 23:28 02/19/20 23:28 02/19/20 23:28 General appearance: Present: no acute distress, well-nourished - EENT Eyes: Present: PERRL, EOM intact ENT: hearing intact, clear oral mucosa, dentition normal - Neck Neck: Present: supple, normal ROM - Respiratory Respiratory effort: normal Respiratory: bilateral: CTA - Cardiovascular Rhythm: regular Heart Sounds: Present: S1 & S2. Absent: gallop, rub - Extremities Extremities: no ischemia, No edema, Full ROM - Abdominal General gastrointestinal: soft, non-tender, non-distended, normal bowel sounds - Integumentary Integumentary: Present: clear, warm, dry - Neurologic Neurologic: CNII-XII intact, moves all extremities HEART Score - HEART Score Troponin: Troponin T < 0.010 ng/mL (0.00-0.029) 02/18/20 16:23 Results - Labs CBC & Chem 7: 02/20/20 05:29 02/20/20 05:29 Labs: Laboratory Last Values WBC 22.8 K/mm3 (4.5-11.0) H 02/20/20 05:29 RBC 4.38 M/mm3 (3.65-5.03) 02/20/20 05:29 Hgb 13.2 gm/dl (10.1-14.3) 02/20/20 05:29 Hct 39.2 % (30.3-42.9) 02/20/20 05:29 MCV 90 fl (79-97) 02/20/20 05:29 MCH 30 pg (28-32) 02/20/20 05:29 MCHC 34 % (30-34) 02/20/20 05:29 RDW 13.9 % (13.2-15.2) 02/20/20 05:29 Plt Count 271 K/mm3 (140-440) 02/20/20 05:29 Lymph % (Auto) 11.0 % (13.4-35.0) L 02/20/20 05:29 [place] % (Auto) 6.3 % (0.0-7.3) 02/20/20 05:29 Eos % (Auto) 0.0 % (0.0-4.3) 02/20/20 05:29 Baso % (Auto) 0.0 % (0.0-1.8) 02/20/20 05:29 Lymph # (Auto) 2.5 K/mm3 (1.2-5.4) 02/20/20 05:29 [place] # (Auto) 1.4 K/mm3 (0.0-0.8) H 02/20/20 05:29 Eos # (Auto) 0.0 K/mm3 (0.0-0.4) 02/20/20 05:29 Baso # (Auto) 0.0 K/mm3 (0.0-0.1) 02/20/20 05:29 Add Manual Diff Complete 02/19/20 02:33 Total Counted 100 02/19/20 02:33 Seg Neutrophils % 82.7 % (40.0-70.0) H 02/20/20 05:29 Seg Neuts % (Manual) 89.0 % (40.0-70.0) H 02/19/20 02:33 Band Neutrophils % 0 % 02/19/20 02:33 Lymphocytes % (Manual) 7.0 % (13.4-35.0) L 02/19/20 02:33 Reactive Lymphs % (Man) 0 % 02/19/20 02:33 Monocytes % (Manual) 3.0 % (0.0-7.3) 02/19/20 02:33 Eosinophils % (Manual) 0 % (0.0-4.3) 02/19/20 02:33 Basophils % (Manual) 0 % (0.0-1.8) 02/19/20 02:33 Metamyelocytes % 1.0 % 02/19/20 02:33 Myelocytes % 0 % 02/19/20 02:33 Promyelocytes % 0 % 02/19/20 02:33 Blast Cells % 0 % 02/19/20 02:33 Nucleated RBC % Not Reportable 02/19/20 02:33 Seg Neutrophils # 18.9 K/mm3 (1.8-7.7) H 02/20/20 05:29 Seg Neutrophils # Man 19.0 K/mm3 (1.8-7.7) H 02/19/20 02:33 Band Neutrophils # 0.0 K/mm3 02/19/20 02:33 Lymphocytes # (Manual) 1.5 K/mm3 (1.2-5.4) 02/19/20 02:33 Abs React Lymphs (Man) 0.0 K/mm3 02/19/20 02:33 Monocytes # (Manual) 0.6 K/mm3 (0.0-0.8) 02/19/20 02:33 Eosinophils # (Manual) 0.0 K/mm3 (0.0-0.4) 02/19/20 02:33 Basophils # (Manual) 0.0 K/mm3 (0.0-0.1) 02/19/20 02:33 Metamyelocytes # 0.2 K/mm3 02/19/20 02:33 Myelocytes # 0.0 K/mm3 02/19/20 02:33 Promyelocytes # 0.0 K/mm3 02/19/20 02:33 Blast Cells # 0.0 K/mm3 02/19/20 02:33 WBC Morphology Not Reportable 02/19/20 02:33 Hypersegmented Neuts Not Reportable 02/19/20 02:33 Hyposegmented Neuts Not Reportable 02/19/20 02:33 Hypogranular Neuts Not Reportable 02/19/20 02:33 Smudge Cells Not Reportable 02/19/20 02:33 Toxic Granulation Not Reportable 02/19/20 02:33 Toxic Vacuolation Not Reportable 02/19/20 02:33 Dohle Bodies Not Reportable 02/19/20 02:33 Pelger-Huet Anomaly Not Reportable 02/19/20 02:33 Angie Rods Not Reportable 02/19/20 02:33 Platelet Estimate Consistent w auto 02/19/20 02:33 Clumped Platelets Not Reportable 02/19/20 02:33 Plt Clumps, EDTA Not Reportable 02/19/20 02:33 Large Platelets Not Reportable 02/19/20 02:33 Giant Platelets Not Reportable 02/19/20 02:33 Platelet Satelliting Not Reportable 02/19/20 02:33 Plt Morphology Comment Not Reportable 02/19/20 02:33 RBC Morphology Not Reportable 02/19/20 02:33 Dimorphic RBCs Not Reportable 02/19/20 02:33 Polychromasia Not Reportable 02/19/20 02:33 Hypochromasia Not Reportable 02/19/20 02:33 Poikilocytosis Not Reportable 02/19/20 02:33 Anisocytosis Not Reportable 02/19/20 02:33 Microcytosis Not Reportable 02/19/20 02:33 Macrocytosis Not Reportable 02/19/20 02:33 Spherocytes Not Reportable 02/19/20 02:33 Pappenheimer Bodies Not Reportable 02/19/20 02:33 Sickle Cells Not Reportable 02/19/20 02:33 Target Cells Not Reportable 02/19/20 02:33 Tear Drop Cells Not Reportable 02/19/20 02:33 Ovalocytes Not Reportable 02/19/20 02:33 Helmet Cells Not Reportable 02/19/20 02:33 [place] Bodies Not Reportable 02/19/20 02:33 [place] Rings Not Reportable 02/19/20 02:33 Amie Cells Not Reportable 02/19/20 02:33 Bite Cells Not Reportable 02/19/20 02:33 Crenated Cell Not Reportable 02/19/20 02:33 Elliptocytes Not Reportable 02/19/20 02:33 Acanthocytes (Spur) Not Reportable 02/19/20 02:33 Rouleaux Not Reportable 02/19/20 02:33 Hemoglobin C Crystals Not Reportable 02/19/20 02:33 Schistocytes Not Reportable 02/19/20 02:33 Malaria parasites Not Reportable 02/19/20 02:33 [place] Bodies Not Reportable 02/19/20 02:33 Hem Pathologist Commnt No 02/19/20 02:33 PT 12.9 Sec. (12.2-14.9) 02/19/20 02:33 INR 0.96 (0.87-1.13) 02/19/20 02:33 D-Dimer 245.33 ng/mlDDU (0-234) H 02/19/20 11:14 Sodium 139 mmol/L (137-145) 02/20/20 05:29 Potassium 3.7 mmol/L (3.6-5.0) 02/20/20 05:29 Chloride 106.7 mmol/L (98-107) 02/20/20 05:29 Carbon Dioxide 24 mmol/L (22-30) 02/20/20 05:29 Anion Gap 12 mmol/L 02/20/20 05:29 BUN 11 mg/dL (7-17) 02/20/20 05:29 Creatinine 0.5 mg/dL (0.6-1.2) L 02/20/20 05:29 Estimated GFR > 60 ml/min 02/20/20 05:29 BUN/Creatinine Ratio 22 % 02/20/20 05:29 Glucose 121 mg/dL (65-100) H 02/20/20 05:29 Lactic Acid 1.80 mmol/L (0.7-2.0) 02/19/20 02:03 Calcium 8.8 mg/dL (8.4-10.2) 02/20/20 05:29 Ferritin 94.6 ng/mL (10.0-200.0) 02/19/20 11:14 Total Bilirubin 0.20 mg/dL (0.1-1.2) 02/18/20 16:23 AST 15 units/L (5-40) 02/18/20 16:23 ALT 21 units/L (7-56) 02/18/20 16:23 Alkaline Phosphatase 96 units/L (35-129) 02/18/20 16:23 Lactate Dehydrogenase 149 units/L (91-180) 02/19/20 11:14 Troponin T < 0.010 ng/mL (0.00-0.029) 02/18/20 16:23 C-Reactive Protein < 0.03 mg/dL (0.00-1.30) 02/19/20 11:14 Total Protein 7.7 g/dL (6.3-8.2) 02/18/20 16:23 Albumin 4.4 g/dL (3.9-5) 02/18/20 16:23 Albumin/Globulin Ratio 1.3 % 02/18/20 16:23 Procalcitonin < 0.05 ng/mL (<0.15) 02/18/20 21:24 Urine Color Straw (Yellow) 02/18/20 Unknown Urine Turbidity Clear (Clear) 02/18/20 Unknown Urine pH 6.0 (5.0-7.0) 02/18/20 Unknown Ur Specific [place] 1.006 (1.003-1.030) 02/18/20 Unknown Urine Protein <15 mg/dl mg/dL (Negative) 02/18/20 Unknown Urine Glucose (UA) Neg mg/dL (Negative) 02/18/20 Unknown Urine Ketones Neg mg/dL (Negative) 02/18/20 Unknown Urine Blood Mod (Negative) 02/18/20 Unknown Urine Nitrite Neg (Negative) 02/18/20 Unknown Urine Bilirubin Neg (Negative) 02/18/20 Unknown Urine Urobilinogen < 2.0 mg/dL (<2.0) 02/18/20 Unknown Ur Leukocyte Esterase Neg (Negative) 02/18/20 Unknown Urine WBC (Auto) < 1.0 /HPF (0.0-6.0) 02/18/20 Unknown Urine RBC (Auto) < 1.0 /HPF (0.0-6.0) 02/18/20 Unknown U Epithel Cells (Auto) 2.0 /HPF (0-13.0) 02/18/20 Unknown Urine Mucus Few /HPF 02/18/20 Unknown Coronavirus (PCR) Positive (Negative) A 02/19/20 11:47 Microbiology: Microbiology 02/18/20 21:28 Peripheral/Venous Blood Culture - Preliminary NO GROWTH AFTER 24 HOURS 02/18/20 21:24 Peripheral/Venous Blood Culture - Preliminary NO GROWTH AFTER [address]/IV: IV Catheter Type [Right Distal INT / Saline Lock Port Hand] Active Medications - Current Medications Current Medications: Generic Name Dose Route Start Last Admin Trade Name Freq PRN Reason Stop Dose Admin Acetaminophen 650 mg 02/18/20 21:58 Tylenol PO Q4H PRN Pain MILD(1-3)/Fever >100.5/MEJIA Dexamethasone 6 mg 02/19/20 10:00 02/19/20 11:26 Decadron IV 6 mg Q24HR ZENOBIA Administration Enoxaparin Sodium 40 mg 02/19/20 22:00 02/20/20 05:16 Enoxaparin SUB-Q Not Given QDAY@2200 [facility] Protocol Ceftriaxone Sodium 2 gm in 100 mls @ 200 mls/hr 02/18/20 21:07 02/19/20 11:27 Rocephin/Ns 2 Gm/100 Ml IV 200 mls/hr Q24HR ZENOBIA Administration Protocol Azithromycin 500 mg/ Sodium 250 mls @ 250 mls/hr 02/18/20 21:07 02/19/20 12:19 Chloride IV 250 mls/hr Q24HR ZENOBIA Administration Protocol Sodium Chloride 1,000 mls @ 75 mls/hr 02/18/20 22:00 Nacl 0.9% 1000 Ml IV DIRECT ZENOBIA Magnesium Hydroxide 30 ml 02/18/20 21:58 Milk Of Magnesia PO Q4H PRN Constipation Morphine Sulfate 2 mg 02/18/20 21:58 Morphine IV Q4H PRN Pain, Moderate (4-6) Ondansetron HCl 4 mg 02/18/20 21:58 Zofran IV Q8H PRN Nausea And Vomiting Sodium Chloride 10 ml 02/18/20 22:00 02/20/20 00:30 Sodium Chloride Flush Syringe 10 Ml IV 10 ml BID ZENOBIA Administration Sodium Chloride 10 ml 02/18/20 21:58 Sodium Chloride Flush Syringe 10 Ml IV PRN PRN LINE FLUSH
[2020-02-20] MEDS ORDERED: AZITHROMYCIN 250 MG TAB ONE (09:59)
[2020-02-20] MEDS ORDERED: dexAMETHasone 20 MG/5 ML VIAL ONE (09:59)
[2020-02-20] MEDS ORDERED: cefTRIAXone/NS 2 GM/100 ML 2 GM/100 ML BAG IV ONE (10:02)
[2020-02-20] MEDS ORDERED: dexAMETHasone 4 MG/ML VIAL ONE (10:30)
[2020-02-20] MEDS: dexAMETHasone 4 MG/ML VIAL IV SCH (10:32)
[2020-02-20] MEDS: cefTRIAXone/NS 2 GM/100 ML 2 GM/100 ML BAG IV SCH (10:41)
[2020-02-20] MEDS: AZITHROMYCIN 500 MG in SODIUM CHLORIDE 0.9% 250ML 250 ML IV SCH (13:32)
[2020-02-20] MEDS ORDERED: ACETAMINOPHEN 325 MG TAB ONE (19:17)
[2020-02-20] MEDS: ACETAMINOPHEN 325 MG TAB PO PRN (19:32)
[2020-02-21] MEDS ORDERED: ENOXAPARIN 40 MG/0.4 ML INJ SUB-Q ONE (02:26)
[2020-02-21] MEDS: ENOXAPARIN 40 MG/0.4 ML INJ SUB-Q SCH (02:35)
[2020-02-21] MEDS ORDERED: ACETAMINOPHEN 325 MG TAB ONE (07:21)
[2020-02-21] MEDS: ACETAMINOPHEN 325 MG TAB PO PRN (07:25)
[2020-02-21] MEDS ORDERED: dexAMETHasone 4 MG/ML VIAL ONE (09:58)
[2020-02-21] MEDS ORDERED: DEXAMETHASONE 4 MG TAB ONE (10:39)
[2020-02-21] MEDS: DEXAMETHASONE 4 MG TAB PO SCH (10:43)
--- NOTE | 2020-02-21 10:44 | Progress Note ---
Assessment and Plan Assessment and plan: Acute respiratory distress Possibly secondary to underlying pneumonia from COVID-19. We will keep O2 saturation greater or equal to 94%. Acute Hypoxic respiratory failure Secondary to pneumonia from COVID-19. Patient will be placed on oxygen to keep O2 saturation greater or equal to 94%. Meanwhile patient has been started on IV steroid. COVID-19 virus infection Positive testing result on 02/18, patient placed on isolation precautions. We appreciate infectious disease evaluation. DVT prophylaxis Patient placed on subcutaneous Lovenox. Full code status 02/20/2020. Patient with only mildly elevated D-dimer but ferritin, procalcitonin, CRP and LDH within normal limits. Patient is afebrile with leukocytosis likely secondary to steroids. Continue dexamethasone. If patient has adequate exercise pulse oximetry, we will consider discharge home. 02/21/2020. Follow-up blood culture. Follow-up chest x-ray today. Continue dexamethasone but no indication for remdesivir given no hypoxia currently. Follow-up inflammatory markers. ID stopped antibiotics given normal procalcitonin. Continue anticoagulation. Prone positioning when possible History Interval history: no new issues Hospitalist Physical - Constitutional Vitals: Temp Pulse Resp BP Pulse Ox 97.7 F 50 L 16 99/60 98 02/21/20 07:20 02/21/20 07:20 02/21/20 07:20 02/21/20 07:20 02/21/20 07:20 General appearance: Present: no acute distress, well-nourished - EENT Eyes: Present: PERRL, EOM intact ENT: hearing intact, clear oral mucosa, dentition normal - Neck Neck: Present: supple, normal ROM - Respiratory Respiratory effort: normal Respiratory: bilateral: CTA - Cardiovascular Rhythm: regular Heart Sounds: Present: S1 & S2. Absent: gallop, rub - Extremities Extremities: no ischemia, No edema, Full ROM - Abdominal General gastrointestinal: soft, non-tender, non-distended, normal bowel sounds - Integumentary Integumentary: Present: clear, warm, dry - Neurologic Neurologic: CNII-XII intact, moves all extremities HEART Score - HEART Score Troponin: Troponin T < 0.010 ng/mL (0.00-0.029) 02/18/20 16:23 Results - Labs CBC & Chem 7: 02/20/20 05:29 02/20/20 05:29 Labs: Laboratory Last Values WBC 22.8 K/mm3 (4.5-11.0) H 02/20/20 05:29 RBC 4.38 M/mm3 (3.65-5.03) 02/20/20 05:29 Hgb 13.2 gm/dl (10.1-14.3) 02/20/20 05:29 Hct 39.2 % (30.3-42.9) 02/20/20 05:29 MCV 90 fl (79-97) 02/20/20 05:29 MCH 30 pg (28-32) 02/20/20 05:29 MCHC 34 % (30-34) 02/20/20 05:29 RDW 13.9 % (13.2-15.2) 02/20/20 05:29 Plt Count 271 K/mm3 (140-440) 02/20/20 05:29 Lymph % (Auto) 11.0 % (13.4-35.0) L 02/20/20 05:29 [place] % (Auto) 6.3 % (0.0-7.3) 02/20/20 05:29 Eos % (Auto) 0.0 % (0.0-4.3) 02/20/20 05:29 Baso % (Auto) 0.0 % (0.0-1.8) 02/20/20 05:29 Lymph # (Auto) 2.5 K/mm3 (1.2-5.4) 02/20/20 05:29 [place] # (Auto) 1.4 K/mm3 (0.0-0.8) H 02/20/20 05:29 Eos # (Auto) 0.0 K/mm3 (0.0-0.4) 02/20/20 05:29 Baso # (Auto) 0.0 K/mm3 (0.0-0.1) 02/20/20 05:29 Add Manual Diff Complete 02/19/20 02:33 Total Counted 100 02/19/20 02:33 Seg Neutrophils % 82.7 % (40.0-70.0) H 02/20/20 05:29 Seg Neuts % (Manual) 89.0 % (40.0-70.0) H 02/19/20 02:33 Band Neutrophils % 0 % 02/19/20 02:33 Lymphocytes % (Manual) 7.0 % (13.4-35.0) L 02/19/20 02:33 Reactive Lymphs % (Man) 0 % 02/19/20 02:33 Monocytes % (Manual) 3.0 % (0.0-7.3) 02/19/20 02:33 Eosinophils % (Manual) 0 % (0.0-4.3) 02/19/20 02:33 Basophils % (Manual) 0 % (0.0-1.8) 02/19/20 02:33 Metamyelocytes % 1.0 % 02/19/20 02:33 Myelocytes % 0 % 02/19/20 02:33 Promyelocytes % 0 % 02/19/20 02:33 Blast Cells % 0 % 02/19/20 02:33 Nucleated RBC % Not Reportable 02/19/20 02:33 Seg Neutrophils # 18.9 K/mm3 (1.8-7.7) H 02/20/20 05:29 Seg Neutrophils # Man 19.0 K/mm3 (1.8-7.7) H 02/19/20 02:33 Band Neutrophils # 0.0 K/mm3 02/19/20 02:33 Lymphocytes # (Manual) 1.5 K/mm3 (1.2-5.4) 02/19/20 02:33 Abs React Lymphs (Man) 0.0 K/mm3 02/19/20 02:33 Monocytes # (Manual) 0.6 K/mm3 (0.0-0.8) 02/19/20 02:33 Eosinophils # (Manual) 0.0 K/mm3 (0.0-0.4) 02/19/20 02:33 Basophils # (Manual) 0.0 K/mm3 (0.0-0.1) 02/19/20 02:33 Metamyelocytes # 0.2 K/mm3 02/19/20 02:33 Myelocytes # 0.0 K/mm3 02/19/20 02:33 Promyelocytes # 0.0 K/mm3 02/19/20 02:33 Blast Cells # 0.0 K/mm3 02/19/20 02:33 WBC Morphology Not Reportable 02/19/20 02:33 Hypersegmented Neuts Not Reportable 02/19/20 02:33 Hyposegmented Neuts Not Reportable 02/19/20 02:33 Hypogranular Neuts Not Reportable 02/19/20 02:33 Smudge Cells Not Reportable 02/19/20 02:33 Toxic Granulation Not Reportable 02/19/20 02:33 Toxic Vacuolation Not Reportable 02/19/20 02:33 Dohle Bodies Not Reportable 02/19/20 02:33 Pelger-Huet Anomaly Not Reportable 02/19/20 02:33 Angie Rods Not Reportable 02/19/20 02:33 Platelet Estimate Consistent w auto 02/19/20 02:33 Clumped Platelets Not Reportable 02/19/20 02:33 Plt Clumps, EDTA Not Reportable 02/19/20 02:33 Large Platelets Not Reportable 02/19/20 02:33 Giant Platelets Not Reportable 02/19/20 02:33 Platelet Satelliting Not Reportable 02/19/20 02:33 Plt Morphology Comment Not Reportable 02/19/20 02:33 RBC Morphology Not Reportable 02/19/20 02:33 Dimorphic RBCs Not Reportable 02/19/20 02:33 Polychromasia Not Reportable 02/19/20 02:33 Hypochromasia Not Reportable 02/19/20 02:33 Poikilocytosis Not Reportable 02/19/20 02:33 Anisocytosis Not Reportable 02/19/20 02:33 Microcytosis Not Reportable 02/19/20 02:33 Macrocytosis Not Reportable 02/19/20 02:33 Spherocytes Not Reportable 02/19/20 02:33 Pappenheimer Bodies Not Reportable 02/19/20 02:33 Sickle Cells Not Reportable 02/19/20 02:33 Target Cells Not Reportable 02/19/20 02:33 Tear Drop Cells Not Reportable 02/19/20 02:33 Ovalocytes Not Reportable 02/19/20 02:33 Helmet Cells Not Reportable 02/19/20 02:33 [place] Bodies Not Reportable 02/19/20 02:33 [place] Rings Not Reportable 02/19/20 02:33 Amie Cells Not Reportable 02/19/20 02:33 Bite Cells Not Reportable 02/19/20 02:33 Crenated Cell Not Reportable 02/19/20 02:33 Elliptocytes Not Reportable 02/19/20 02:33 Acanthocytes (Spur) Not Reportable 02/19/20 02:33 Rouleaux Not Reportable 02/19/20 02:33 Hemoglobin C Crystals Not Reportable 02/19/20 02:33 Schistocytes Not Reportable 02/19/20 02:33 Malaria parasites Not Reportable 02/19/20 02:33 [place] Bodies Not Reportable 02/19/20 02:33 Hem Pathologist Commnt No 02/19/20 02:33 PT 12.9 Sec. (12.2-14.9) 02/19/20 02:33 INR 0.96 (0.87-1.13) 02/19/20 02:33 D-Dimer 245.33 ng/mlDDU (0-234) H 02/19/20 11:14 Sodium 139 mmol/L (137-145) 02/20/20 05:29 Potassium 3.7 mmol/L (3.6-5.0) 02/20/20 05:29 Chloride 106.7 mmol/L (98-107) 02/20/20 05:29 Carbon Dioxide 24 mmol/L (22-30) 02/20/20 05:29 Anion Gap 12 mmol/L 02/20/20 05:29 BUN 11 mg/dL (7-17) 02/20/20 05:29 Creatinine 0.5 mg/dL (0.6-1.2) L 02/20/20 05:29 Estimated GFR > 60 ml/min 02/20/20 05:29 BUN/Creatinine Ratio 22 % 02/20/20 05:29 Glucose 121 mg/dL (65-100) H 02/20/20 05:29 Lactic Acid 1.80 mmol/L (0.7-2.0) 02/19/20 02:03 Calcium 8.8 mg/dL (8.4-10.2) 02/20/20 05:29 Ferritin 94.6 ng/mL (10.0-200.0) 02/19/20 11:14 Total Bilirubin 0.20 mg/dL (0.1-1.2) 02/18/20 16:23 AST 15 units/L (5-40) 02/18/20 16:23 ALT 21 units/L (7-56) 02/18/20 16:23 Alkaline Phosphatase 96 units/L (35-129) 02/18/20 16:23 Lactate Dehydrogenase 149 units/L (91-180) 02/19/20 11:14 Troponin T < 0.010 ng/mL (0.00-0.029) 02/18/20 16:23 C-Reactive Protein < 0.03 mg/dL (0.00-1.30) 02/19/20 11:14 Total Protein 7.7 g/dL (6.3-8.2) 02/18/20 16:23 Albumin 4.4 g/dL (3.9-5) 02/18/20 16:23 Albumin/Globulin Ratio 1.3 % 02/18/20 16:23 Procalcitonin < 0.05 ng/mL (<0.15) 02/18/20 21:24 Urine Color Straw (Yellow) 02/18/20 Unknown Urine Turbidity Clear (Clear) 02/18/20 Unknown Urine pH 6.0 (5.0-7.0) 02/18/20 Unknown Ur Specific [place] 1.006 (1.003-1.030) 02/18/20 Unknown Urine Protein <15 mg/dl mg/dL (Negative) 02/18/20 Unknown Urine Glucose (UA) Neg mg/dL (Negative) 02/18/20 Unknown Urine Ketones Neg mg/dL (Negative) 02/18/20 Unknown Urine Blood Mod (Negative) 02/18/20 Unknown Urine Nitrite Neg (Negative) 02/18/20 Unknown Urine Bilirubin Neg (Negative) 02/18/20 Unknown Urine Urobilinogen < 2.0 mg/dL (<2.0) 02/18/20 Unknown Ur Leukocyte Esterase Neg (Negative) 02/18/20 Unknown Urine WBC (Auto) < 1.0 /HPF (0.0-6.0) 02/18/20 Unknown Urine RBC (Auto) < 1.0 /HPF (0.0-6.0) 02/18/20 Unknown U Epithel Cells (Auto) 2.0 /HPF (0-13.0) 02/18/20 Unknown Urine Mucus Few /HPF 02/18/20 Unknown Coronavirus (PCR) Positive (Negative) A 02/19/20 11:47 Microbiology: Microbiology 02/18/20 21:28 Peripheral/Venous Blood Culture - Preliminary NO GROWTH AFTER 48 HOURS 02/18/20 21:24 Peripheral/Venous Blood Culture - Preliminary NO GROWTH AFTER [address]/IV: IV Catheter Type [Right Distal INT / Saline Lock Port Hand] Active Medications - Current Medications Current Medications: Generic Name Dose Route Start Last Admin Trade Name Freq PRN Reason Stop Dose Admin Acetaminophen 650 mg 02/18/20 21:58 02/21/20 07:25 Tylenol PO 650 mg Q4H PRN Administration Pain MILD(1-3)/Fever >100.5/MEJIA Dexamethasone 6 mg 02/21/20 10:00 Decadron PO 02/28/20 10:01 DAILY ZENOBIA Enoxaparin Sodium 40 mg 02/19/20 22:00 02/21/20 02:35 Enoxaparin SUB-Q 40 mg QDAY@2200 ZENOBIA Administration Protocol Sodium Chloride 1,000 mls @ 75 mls/hr 02/18/20 22:00 Nacl 0.9% 1000 Ml IV DIRECT ZENOBIA Magnesium Hydroxide 30 ml 02/18/20 21:58 Milk Of Magnesia PO Q4H PRN Constipation Morphine Sulfate 2 mg 02/18/20 21:58 Morphine IV Q4H PRN Pain, Moderate (4-6) Ondansetron HCl 4 mg 02/18/20 21:58 Zofran IV Q8H PRN Nausea And Vomiting Sodium Chloride 10 ml 02/18/20 22:00 02/21/20 10:02 Sodium Chloride Flush Syringe 10 Ml IV 10 ml BID ZENOBIA Administration Sodium Chloride 10 ml 02/18/20 21:58 Sodium Chloride Flush Syringe 10 Ml IV PRN PRN LINE FLUSH
--- NOTE | 2020-02-21 11:49 | XRay Report ---
CHEST 1 VIEW 02/21/2020 11:32 AM INDICATION / CLINICAL INFORMATION: COVID pneumonia. COMPARISON: 02/18/2020. FINDINGS: SUPPORT DEVICES: None. HEART / MEDIASTINUM: No significant abnormality. LUNGS / PLEURA: No significant pulmonary or pleural abnormality. No pneumothorax. ADDITIONAL FINDINGS: No significant additional findings. IMPRESSION: No acute cardiopulmonary abnormality. Signer Name: Dao Wadsworth MD Signed: 02/21/2020 11:44 AM Workstation Name: [id number]
--- NOTE | 2020-02-21 16:33 | Progress Note ---
Assessment and Plan Cultures: Blood culture no growth SARS CoV2 PCR positive Assessment: 29 years old female with no past medical history admitted on 02/18/2020 due to 3 days history of cough, chest congestion and shortness of breath, multiple family members positive for COVID-19.: #Leukocytosis: Unclear etiology, usually not associated with COVID-19 infection. Patient was receiving a steroid as an outpatient possibly WBC demargination due to her steroids. Procalcitonin is normal. Urinalysis negative. #COVID-19 infection: Chest x-ray unremarkable. Markers overall normal except for mildly elevated D-dimer. #Hypoxia upon ambulation: Likely due to COVID-19 infection. Currently on room air. Recommendations: Given lack of hypoxia, normal inflammatory markers and no evidence of pneumonia on chest x-ray, can stop steroids soon, do not need to complete 10 days ID will sign off. Please call with questions Justen Campbell MD, FACP [facility] O: [phone] F: [phone] Subjective Date of service: 02/21/20 Interval history: No fever. Remains on room air. Objective - Exam Narrative Exam: Physical Exam (reviewed in chart due to PPE conservation and minimize risk of transmission) Constitutional: limited due to PPE conservation strategy Head, Ears, Nose: limited due to PPE conservation strategy Eyes: limited due to PPE conservation strategy Neck: limited due to PPE conservation strategy Oral: limited due to PPE conservation strategy Cardiovascular: limited due to PPE conservation strategy Respiratory: limited due to PPE conservation strategy GI: limited due to PPE conservation strategy Musculoskeletal: limited due to PPE conservation strategy Skin: limited due to PPE conservation strategy Hem/Lymphatic: limited due to PPE conservation strategy Psych: limited due to PPE conservation strategy Neurological: limited due to PPE conservation strategy - Constitutional Vitals: Vital Signs Temp Pulse Resp BP Pulse Ox 97.7 F 64 16 93/57 98 02/21/20 07:20 02/21/20 15:33 02/21/20 15:33 02/21/20 15:33 02/21/20 15:33 Temperature -Last 24 Hours Temperature 97.7 F Temperature 98.2 F - Labs CBC & Chem 7: 02/20/20 05:29 02/20/20 05:29
[2020-02-22] MEDS ORDERED: ACETAMINOPHEN 325 MG TAB ONE (01:13)
[2020-02-22] MEDS: ACETAMINOPHEN 325 MG TAB PO PRN (01:15)
[2020-02-22] MEDS ORDERED: ENOXAPARIN 100 MG/1 ML INJ SUB-Q ONE (07:46)
[2020-02-22] MEDS ORDERED: ENOXAPARIN 40 MG/0.4 ML INJ SUB-Q ONE (07:51)
[2020-02-22] MEDS ORDERED: DEXAMETHASONE 4 MG TAB ONE (07:51)
[2020-02-22] MEDS: ENOXAPARIN 40 MG/0.4 ML INJ SUB-Q SCH (07:57)
[2020-02-22] MEDS: DEXAMETHASONE 4 MG TAB PO SCH (10:09)
--- NOTE | 2020-02-22 10:58 | Discharge Summary ---
Providers - Providers Date of Admission: 02/20/20 11:20 Date of discharge: 02/22/20 Attending physician: ROLO RHOADES 02/18/20 21:58 Consult to Physician [CONS] Routine Comment: Consulting Provider: LIZETH GOETZ Physician Instructions: Reason For Exam: FEVER, HYPOXIA- R/O COVID19 Primary care physician: [facility]URSE Hospitalization Condition: Serious Hospital course: HPI 29-year-old female with no significant past medical history presenting to the emergency room complaining of cough, congestion and shortness of breath. She was seen at the clinic about 3 days and diagnosed with left-sided pneumonia and started on antibiotics and steroids. She also indicates that several family members have tested positive for COVID-19. As symptoms have been getting worse and she has not had any improvement since she started the antibiotics. Patient denies any chest pain, no nausea or vomiting, no diarrhea, no headache or dizziness, no hematuria or dysuria. Cough has been nonproductive. Evaluation in the emergency room today reveals a significant leukocytosis on the CBC, patient was hypoxic on minimal exertion. Chest x-ray is unremarkable. Patient has been started on empiric IV antibiotics and IV steroid. She is also placed on isolation precautions to rule out COVID-19. Hospital course Patient's COVID-19 test came out positive and patient was ID was also consulted. Patient remained stable and did not need oxygen when she ambulates. As per ID, patient does not need remdesivir as well. This a.m., patient is able to ambulate well and sats remained in the high 90s. She is stable for discharge today. She has been advised to quarantine for 14 days. She has also been advised to return to the emergency room should she have any worsening symptoms. She agrees with management. Disposition: - TO HOME OR SELFCARE - Discharge Diagnoses (1) Pneumonia due to COVID-19 virus Status: Acute Core Measure Documentation - Palliative Care Palliative Care/ Comfort Measures: Not Applicable - Core Measures Any of the following diagnoses?: none Exam - Constitutional Vitals: Temp Pulse Resp BP Pulse Ox 97.8 F 63 18 98/54 98 02/21/20 21:35 02/21/20 21:35 02/21/20 21:35 02/21/20 21:35 02/21/20 21:35 General appearance: Present: no acute distress, well-nourished - EENT Eyes: Present: PERRL ENT: hearing intact, clear oral mucosa - Neck Neck: Present: supple, normal ROM - Respiratory Respiratory effort: normal Respiratory: bilateral: CTA - Cardiovascular Heart Sounds: Present: S1 & S2. Absent: rub, click - Extremities Extremities: pulses symmetrical, No edema Peripheral Pulses: within normal limits - Abdominal General gastrointestinal: Present: soft, non-tender, non-distended, normal bowel sounds Female genitourinary: Present: normal - Integumentary Integumentary: Present: clear, warm, dry - Musculoskeletal Musculoskeletal: gait normal, strength equal bilaterally - Psychiatric Psychiatric: appropriate mood/affect, intact judgment & insight - Neurologic Neurologic: CNII-XII intact, moves all extremities Plan Additional Instructions: Continue to monitor symptoms at home and return to the ER immediately if you have any worsening symptoms. Quarantine for 14 days Follow up with: PRIMARY CARE, [Primary Care Provider] - 7 Days Prescriptions: Apixaban [Eliquis] 2.5 mg PO BID #14 tablet
[2020-02-22 16:29] VITALS: BP 100/60
== END 2020-02-22 17:09 | disposition home or self-care (01) | DRG 177 ==
LOC: ED 15:08 → 3A 21:30 → OBSVTOIN 02-20 11:20 → 3A 02-22 10:57
PROVIDERS: ADMIT Internal Medicine Geriatric Medicine; ATTEND Internal Medicine
DX: U07.1 COVID-19 (principal); J12.89 Other viral pneumonia; J96.01 Acute respiratory failure with hypoxia; J20.9 Acute bronchitis, unspecified; Z79.899 Other long term (current) drug therapy
CPT/HCPCS: 36415; 71045; 71046; 80048; 80053; 81001; 82140; 82728; 82947; 83615; 84145; 84484; 85007; 85025; 85379; 85610; 86140; 87040; 93005; G0378; J0456; J0696; J1100; J1650; J2270; J7030; J7050; J8540; U0003